=== PATIENT | male | born 1940 | race Caucasian/White ===

== ENCOUNTER 2022-06-10 07:08 | Inpatient (IN) | payer OTHER ==
[2022-06-10] MEDS ORDERED: Aspirin Chewable 81 MG TAB ONE (07:23)
[2022-06-10] MEDS ORDERED: Nitroglycerin 0.4 MG TAB 1 EACH ONE (07:24)
[2022-06-10] MEDS ORDERED: Nitroglycerin 2% Ointment 1 INCH/1 GM Packet ONE (07:24)
[2022-06-10 07:38] LABS: #Basophils 0.1 10x3/uL (0.0-0.2); #Eosinphils 0.1 10x3/uL (0.0-0.5); #Monocytes 0.8 10x3/uL (0.0-1.1); #Neutrophils 3.7 10x3/uL (1.5-8.4); %Basophils 0.7 % (0.0-2.0); %Eosinophils 1.8 % (0.0-6.0); %Lymphocytes 30.2 % (18.0-47.0); %Monocytes 11.3 % (0.0-10.0); %Neutrophils 55.6 % (40.0-75.0); Hemoglobin 14.6 g/dL (13.5-17.5); Mean Corpuscular HGB CONC 32.3 g/dL (32.0-36.0); Mean Corpuscular Hemoglobin 29.5 pg (27.0-33.0); Mean Corpuscular Volume 91.3 fl (81.2-95.1); Mean Platelet Volume 9.7 fl (7.4-10.4); Platelet Count 250 10x3/uL (150-450); RBC Distribution Width 13.3 % (11.5-14.5); Red Blood Cell (RBC) Count 4.95 10x6/uL (4.32-5.72); White Blood Cell (WBC) Count 6.7 10x3/uL (3.5-10.5)
[2022-06-10 07:57] LABS: ALT (SGPT) 14 U/L (8-55); AST (SGOT) 20 U/L (5-34); Albumin 4.2 g/dL (3.4-4.8); Alkaline Phosphatase 88 U/L (40-110); Anion Gap 17 mmol/L (10-20); BUN (Urea Nitrogen) 14 mg/dL (8.4-25.7); Bilirubin, Total 0.8 mg/dL (0.2-1.2); CK (CPK) 34 U/L (30-200); Calc. Creatinine Clearance 0 mL/min (70-130); Calcium 9.1 mg/dL (7.8-10.44); Carbon Dioxide 21 mmol/L (23-31); Chloride 105 mmol/L (98-107); Estimated GFR 67; Glucose 138 mg/dL (83-110); Lipase 32 U/L (8-78); Potassium 4.3 mmol/L (3.5-5.1); Protein, Total 7.2 g/dL (5.8-8.1); Sodium 139 mmol/L (136-145)
[2022-06-10] MEDS ORDERED: Ondansetron ODT 4 MG TAB PO PRN (10:22)
[2022-06-10] MEDS ORDERED: Ondansetron PF 4 MG/2 ML Vial IVP PRN (10:22)
[2022-06-10] MEDS ORDERED: Acetaminophen 325 MG TAB PO PRN (10:22)
[2022-06-10] MEDS ORDERED: Nitroglycerin 0.4 MG TAB (25 Tab Bottle) SL PRN (10:25)
[2022-06-10 10:27] LABS: CKMB 1.2 ng/mL (0-6.6)
[2022-06-10] MEDS ORDERED: Communication Order-Pharmacy FS SCH (10:30)
[2022-06-10] MEDS ORDERED: Electrolyte Replacement Protocol 1 EACH FS SCH (10:45)
[2022-06-10 11:45] VITALS: BMI 26.4
[2022-06-10 14:40] LABS: CKMB 1.4 ng/mL (0-6.6)
[2022-06-10] MEDS: Carbidopa/Levodopa 25-100 mg Tablet PO SCH (16:05)
[2022-06-10] MEDS: Carvedilol 6.25 MG TAB PO SCH (17:05)
[2022-06-10] MEDS ORDERED: Atorvastatin Calcium 20 MG TAB PO SCH (21:00)
[2022-06-10] MEDS ORDERED: ALPRAZolam 0.25 MG TAB PO SCH (22:30)
[2022-06-11 01:26] LABS: SARS-CoV-2 NAA Rapid Test Not Detected (NotDetected)
[2022-06-11] MEDS: Carbidopa/Levodopa 25-100 mg Tablet PO SCH ×2 (03:58→10:43)
[2022-06-11 05:22] LABS: #Basophils 0.1 10x3/uL (0.0-0.2); #Eosinphils 0.1 10x3/uL (0.0-0.5); #Monocytes 0.8 10x3/uL (0.0-1.1); #Neutrophils 3.2 10x3/uL (1.5-8.4); %Basophils 0.9 % (0.0-2.0); %Eosinophils 2.2 % (0.0-6.0); %Lymphocytes 27.4 % (18.0-47.0); %Monocytes 14.1 % (0.0-10.0); %Neutrophils 55.1 % (40.0-75.0); Hemoglobin 13.2 g/dL (13.5-17.5); Mean Corpuscular HGB CONC 32.7 g/dL (32.0-36.0); Mean Corpuscular Hemoglobin 29.4 pg (27.0-33.0); Mean Platelet Volume 9.8 fl (7.4-10.4); Platelet Count 223 10x3/uL (150-450); RBC Distribution Width 13.3 % (11.5-14.5); Red Blood Cell (RBC) Count 4.49 10x6/uL (4.32-5.72); White Blood Cell (WBC) Count 5.9 10x3/uL (3.5-10.5)
[2022-06-11 05:37] LABS: Anion Gap 11 mmol/L (10-20); BUN (Urea Nitrogen) 13 mg/dL (8.4-25.7); Calc. Creatinine Clearance 71 mL/min (70-130); Calcium 8.7 mg/dL (7.8-10.44); Carbon Dioxide 20 mmol/L (23-31); Cardiac Risk 2.6 (Less than 4.5); Chloride 110 mmol/L (98-107); Cholesterol 124 mg/dl (< 200 Desired); Estimated GFR 87; Glucose 100 mg/dL (83-110); HDL Cholesterol 48 mg/dL (>60 Neg Risk); LDL Cholesterol, Calculated 56 mg/dL; Sodium 137 mmol/L (136-145); Triglycerides 100 mg/dL (Less than 150)
[2022-06-11] MEDS ORDERED: Sodium Chloride 0.9% 1,000 ML IV SCH (06:00)
[2022-06-11] MEDS: Carvedilol 6.25 MG TAB PO SCH (06:03)
[2022-06-11] MEDS ORDERED: Nitroglycerin 50 MG/250 ML BOT 250 ML ONE (07:36)
[2022-06-11] MEDS ORDERED: Lidocaine 1% (PF) 30 ML VIAL ONE (07:36)
[2022-06-11] MEDS ORDERED: Heparin 10,000 UNITS/ 10 ML VIAL ONE (07:37)
[2022-06-11] MEDS ORDERED: Bivalirudin 250 MG VIAL ONE ×2 (07:38→09:20)
[2022-06-11] MEDS ORDERED: Verapamil 5 MG/2 ML VIAL ONE (07:38)
[2022-06-11] MEDS ORDERED: Magnesium 2 GM/50 ML(in water) 2 GM in Premix Bag 1 BAG IVPB SCH (08:00)
[2022-06-11] MEDS ORDERED: Midazolam HCl 2 mg/2 ml Vial ONE (08:28)
[2022-06-11] MEDS ORDERED: Fentanyl 100 MCG/2 ML VIAL ONE (08:28)
[2022-06-11] MEDS ORDERED: Atropine Sulfate 0.4 mg/1 ml Vial ONE (08:41)
[2022-06-11] MEDS ORDERED: Lisinopril 2.5 MG TAB PO SCH (09:00)
[2022-06-11] MEDS ORDERED: Gabapentin 100 MG CAP PO SCH ×2 (09:00)
[2022-06-11] MEDS ORDERED: Aspirin 325 MG TAB ONE (09:01)
[2022-06-11] MEDS ORDERED: Aspirin Chewable 81 MG TAB ONE (09:01)
[2022-06-11] MEDS ORDERED: TICAGRELOR 90 MG TABLET ONE (09:01)
[2022-06-11] MEDS ORDERED: Iopamidol 300 61% 100 ML VIAL FS ONE (10:29)
[2022-06-11 13:12] LABS: Hemoglobin A1c 5.1 % (4.0-6.0)
[2022-06-11 16:45] VITALS: BP 129/53; TEMP 97.8
[2022-06-11] MEDS ORDERED: TICAGRELOR 90 MG TABLET PO SCH (21:00)
[2022-06-12] MEDS ORDERED: Aspirin 81 mg Enteric Coated Tablet PO SCH (09:00)
== END 2022-06-11 16:15 | disposition home or self-care (01) | DRG 250 ==
LOC: CSHERS 07:08 → CSHTELE 10:52
PROVIDERS: ADMIT Hospitalist; ATTEND Hospitalist
PROC: 02703ZZ Dilation of Coronary Artery, One Artery, Percutaneous Approach (ICD-10-PCS; principal; 2022-06-11)
PROC: 4A023N7 Measurement of Cardiac Sampling and Pressure, Left Heart, Percutaneous Approach (ICD-10-PCS; 2022-06-11)
PROC: B2111ZZ Fluoroscopy of Multiple Coronary Arteries using Low Osmolar Contrast (ICD-10-PCS; 2022-06-11)
PROC: B2151ZZ Fluoroscopy of Left Heart using Low Osmolar Contrast (ICD-10-PCS; 2022-06-11)
PROC: B241ZZ3 Ultrasonography of Multiple Coronary Arteries, Intravascular (ICD-10-PCS; 2022-06-11)
DX: T82.855A Stenosis of coronary artery stent, initial encounter (principal); I21.4 Non-ST elevation (NSTEMI) myocardial infarction; I25.110 Atherosclerotic heart disease of native coronary artery with unstable angina pectoris; Z20.822 Contact with and (suspected) exposure to COVID-19; I10 Essential (primary) hypertension; E78.5 Hyperlipidemia, unspecified; G20 Parkinson's disease; K21.9 Gastro-esophageal reflux disease without esophagitis; G62.9 Polyneuropathy, unspecified; E03.9 Hypothyroidism, unspecified; I35.0 Nonrheumatic aortic (valve) stenosis; Y83.8 Other surgical procedures as the cause of abnormal reaction of the patient, or of later complication, without mention of misadventure at the time of the procedure; Z95.5 Presence of coronary angioplasty implant and graft; Z79.82 Long term (current) use of aspirin; Z79.899 Other long term (current) drug therapy; Z82.49 Family history of ischemic heart disease and other diseases of the circulatory system; I25.2 Old myocardial infarction
CPT/HCPCS: 36415; 71045; 80048; 80053; 80061; 82550; 82553; 83036; 83690; 83735; 83880; 84443; 84484; 85025; 92920; 92978; 92979; 93005; 93010; 93458; 94760; 96372; 99152; 99153; C1725; C1753; C1769; C1887; C1894; J0461; J0583; J1644; J1650; J2001; J2250; J3010; J7050; Q9967; U0002

== ENCOUNTER 2022-10-26 17:03 | Inpatient (IN) | payer OTHER ==
[2022-10-26 17:39] LABS: Hemoglobin 14.4 g/dL (13.5-17.5); Mean Corpuscular HGB CONC 31.6 g/dL (32.0-36.0); Mean Corpuscular Hemoglobin 30.5 pg (27.0-33.0); Mean Corpuscular Volume 96.4 fl (81.2-95.1); Mean Platelet Volume 9.8 fl (7.4-10.4); Platelet Count 207 10x3/uL (150-450); Red Blood Cell (RBC) Count 4.72 10x6/uL (4.32-5.72); White Blood Cell (WBC) Count 6.4 10x3/uL (3.5-10.5)
[2022-10-26 17:50] LABS: ALT (SGPT) 20 U/L (8-55); AST (SGOT) 22 U/L (5-34); Alkaline Phosphatase 75 U/L (40-110); Anion Gap 15 mmol/L (10-20); BUN (Urea Nitrogen) 14 mg/dL (8.4-25.7); Bilirubin, Total 0.4 mg/dL (0.2-1.2); Calc. Creatinine Clearance 0 mL/min (70-130); Calcium 8.8 mg/dL (7.8-10.44); Carbon Dioxide 23 mmol/L (23-31); Chloride 103 mmol/L (98-107); Estimated GFR 85; Glucose 102 mg/dL (83-110); Lipase 25 U/L (8-78); Potassium 4.3 mmol/L (3.5-5.1); Sodium 137 mmol/L (136-145)
[2022-10-26 18:13] LABS: CKMB 1.4 ng/mL (0-6.6); MDiff Complete? YES
[2022-10-26 18:15] LABS: Lymphocytes 22 % (21-51); Monocytes 14 % (0-10); Neutrophil 63 % (42-75); Reactive Lymphocytes 1 % (0-10)
[2022-10-26 18:17] LABS: Platelet Adequacy Comment Appears Adequate; RBC Morph Comment Within Normal Limits
[2022-10-26] MEDS ORDERED: Ondansetron PF 4 MG/2 ML Vial ONE (18:19)
[2022-10-26] MEDS ORDERED: Aspirin Chewable 81 MG TAB ONE (18:19)
[2022-10-26] MEDS ORDERED: Famotidine 20 MG TAB ONE (18:20)
[2022-10-26] MEDS ORDERED: Senokot S 8.6-50 MG TAB PO PRN (20:09)
[2022-10-26] MEDS ORDERED: Ondansetron PF 4 MG/2 ML Vial IVP PRN (20:09)
[2022-10-26] MEDS ORDERED: Guaifenesin DM 100-10/5 ML UDCUP PO PRN (20:09)
[2022-10-26] MEDS ORDERED: Nitroglycerin 0.4 MG TAB (25 Tab Bottle) SL PRN (20:10)
[2022-10-26 22:31] VITALS: BMI 30.7
[2022-10-26] MEDS ORDERED: Gabapentin 300 MG CAP PO SCH (22:45)
[2022-10-26] MEDS ORDERED: Atorvastatin Calcium 20 MG TAB PO SCH (22:45)
[2022-10-26] MEDS ORDERED: TICAGRELOR 90 MG TABLET PO SCH (22:45)
[2022-10-26] MEDS: Acetaminophen 325 MG TAB PO PRN (23:02)
[2022-10-26 23:54] LABS: CKMB 1.4 ng/mL (0-6.6)
[2022-10-27] MEDS ORDERED: Levothyroxine Sodium 125 MCG TAB PO SCH (06:00)
[2022-10-27 07:02] LABS: CKMB 1.5 ng/mL (0-6.6)
[2022-10-27] MEDS: Escitalopram Oxalate 10 mg Tablet PO SCH (09:11)
[2022-10-27] MEDS: TICAGRELOR 90 MG TABLET PO SCH ×2 (09:11→20:43)
[2022-10-27] MEDS: Aspirin 81 mg Enteric Coated Tablet PO SCH (09:11)
[2022-10-27 12:30] LABS: Bilirubin Neg (Negative); Blood, Urine Negative (Negative); Clarity Clear (Clear); Glucose, Urine (Dipstick) Normal (Negative); Ketone, Urine Negative (Negative); Leukocyte Negative (Negative); Nitrite Negative (Negative); Protein, Urine (Dipstick) Negative (Neg-Trace)
[2022-10-27 12:32] LABS: Bacteria/HPF None Seen HPF (None Seen); RBC/HPF None Seen HPF (0-3); Squamous Epithelial None Seen HPF (0-3); WBC/HPF None Seen HPF (0-3)
[2022-10-27] MEDS: Calcium Carbonate 500 MG ChewTAB PO PRN ×2 (15:41→19:34)
[2022-10-27] MEDS: Acetaminophen 325 MG TAB PO PRN (19:34)
[2022-10-27] MEDS ORDERED: traZODone HCl 50 MG TAB PO SCH (20:30)
[2022-10-27] MEDS: Metoprolol Tartrate 25 MG TAB PO SCH (20:43)
[2022-10-27] MEDS: Gabapentin 300 MG CAP PO SCH (20:44)
[2022-10-27] MEDS: Atorvastatin Calcium 20 MG TAB PO SCH (20:45)
[2022-10-27] MEDS ORDERED: Gabapentin 300 MG CAP PO SCH (22:30)
[2022-10-27] MEDS ORDERED: Pramipexole Di-HCl 0.25 MG TAB PO SCH (22:30)
[2022-10-28 04:57] LABS: #Eosinphils 0.2 10x3/uL (0.0-0.5); #Monocytes 0.8 10x3/uL (0.0-1.1); #Neutrophils 3.1 10x3/uL (1.5-8.4); %Basophils 0.7 % (0.0-2.0); %Eosinophils 2.8 % (0.0-6.0); %Lymphocytes 27.5 % (18.0-47.0); %Monocytes 14.7 % (0.0-10.0); %Neutrophils 53.8 % (40.0-75.0); Hemoglobin 13.6 g/dL (13.5-17.5); Mean Corpuscular HGB CONC 33.3 g/dL (32.0-36.0); Mean Corpuscular Hemoglobin 30.5 pg (27.0-33.0); Mean Corpuscular Volume 91.5 fl (81.2-95.1); Mean Platelet Volume 9.6 fl (7.4-10.4); Platelet Count 194 10x3/uL (150-450); RBC Distribution Width 14.2 % (11.5-14.5); Red Blood Cell (RBC) Count 4.46 10x6/uL (4.32-5.72); White Blood Cell (WBC) Count 5.7 10x3/uL (3.5-10.5)
[2022-10-28 05:05] LABS: Anion Gap 14 mmol/L (10-20); BUN (Urea Nitrogen) 22 mg/dL (8.4-25.7); Calc. Creatinine Clearance 78 mL/min (70-130); Calcium 8.9 mg/dL (7.8-10.44); Carbon Dioxide 22 mmol/L (23-31); Chloride 108 mmol/L (98-107); Estimated GFR 86; Glucose 97 mg/dL (83-110); Sodium 140 mmol/L (136-145)
[2022-10-28] MEDS: Levothyroxine Sodium 112 MCG TAB PO SCH (05:21)
[2022-10-28] MEDS: Metoprolol Tartrate 25 MG TAB PO SCH ×2 (09:17→21:00)
[2022-10-28] MEDS: Aspirin 81 mg Enteric Coated Tablet PO SCH (09:17)
[2022-10-28] MEDS: Escitalopram Oxalate 10 mg Tablet PO SCH (09:17)
[2022-10-28] MEDS: TICAGRELOR 90 MG TABLET PO SCH ×2 (09:51→21:00)
[2022-10-28] MEDS: Acetaminophen 325 MG TAB PO PRN ×2 (16:12→21:01)
[2022-10-28] MEDS ORDERED: Communication Order-Pharmacy FS SCH ×2 (19:45→20:00)
[2022-10-28] MEDS: Atorvastatin Calcium 20 MG TAB PO SCH (21:00)
[2022-10-28] MEDS: Gabapentin 300 MG CAP PO SCH (21:00)
[2022-10-28] MEDS ORDERED: traZODone HCl 50 MG TAB PO SCH (21:15)
[2022-10-28] MEDS ORDERED: Gabapentin 300 MG CAP PO SCH (21:15)
[2022-10-29] MEDS: TICAGRELOR 90 MG TABLET PO SCH (05:53)
[2022-10-29] MEDS: Aspirin 81 mg Enteric Coated Tablet PO SCH (05:53)
[2022-10-29] MEDS: Escitalopram Oxalate 10 mg Tablet PO SCH (05:53)
[2022-10-29] MEDS: Levothyroxine Sodium 112 MCG TAB PO SCH (05:53)
[2022-10-29 05:59] LABS: #Eosinphils 0.2 10x3/uL (0.0-0.5); #Monocytes 0.7 10x3/uL (0.0-1.1); #Neutrophils 2.9 10x3/uL (1.5-8.4); %Basophils 0.5 % (0.0-2.0); %Eosinophils 2.9 % (0.0-6.0); %Lymphocytes 29.8 % (18.0-47.0); %Monocytes 13.1 % (0.0-10.0); %Neutrophils 53.2 % (40.0-75.0); Mean Corpuscular HGB CONC 33.8 g/dL (32.0-36.0); Mean Corpuscular Hemoglobin 30.6 pg (27.0-33.0); Mean Corpuscular Volume 90.4 fl (81.2-95.1); Mean Platelet Volume 9.6 fl (7.4-10.4); Platelet Count 208 10x3/uL (150-450); RBC Distribution Width 14.2 % (11.5-14.5); Red Blood Cell (RBC) Count 4.58 10x6/uL (4.32-5.72); White Blood Cell (WBC) Count 5.5 10x3/uL (3.5-10.5)
[2022-10-29 06:06] LABS: Anion Gap 13 mmol/L (10-20); BUN (Urea Nitrogen) 22 mg/dL (8.4-25.7); Calc. Creatinine Clearance 71 mL/min (70-130); Carbon Dioxide 23 mmol/L (23-31); Chloride 108 mmol/L (98-107); Estimated GFR 77; Glucose 97 mg/dL (83-110); Potassium 3.9 mmol/L (3.5-5.1); Sodium 140 mmol/L (136-145)
[2022-10-29] MEDS: Metoprolol Tartrate 25 MG TAB PO SCH (08:45)
[2022-10-29] MEDS ORDERED: Iopamidol 300 61% 100 ML VIAL FS ONE (10:21)
[2022-10-29] MEDS ORDERED: Nitroglycerin 50 MG/250 ML BOT 250 ML ONE (12:28)
[2022-10-29] MEDS ORDERED: Lidocaine 1% MPF 2 ML VIAL ONE (12:28)
[2022-10-29] MEDS ORDERED: Lidocaine 1% (PF) 30 ML VIAL ONE (12:28)
[2022-10-29] MEDS ORDERED: Heparin 10,000 UNITS/ 10 ML VIAL ONE (12:29)
[2022-10-29] MEDS ORDERED: Verapamil 5 MG/2 ML VIAL ONE (12:30)
[2022-10-29] MEDS ORDERED: Adenosine 6 MG/2 ML VIAL ONE (12:30)
[2022-10-29] MEDS ORDERED: fentaNYL 50 mcg/mL 1 mL Vial ONE (13:36)
[2022-10-29] MEDS ORDERED: Midazolam HCl 2 mg/2 ml Vial ONE (13:36)
[2022-10-29 14:59] VITALS: TEMP 98
[2022-10-29 18:04] VITALS: BP 134/61
== END 2022-10-29 18:40 | disposition home or self-care (01) | DRG 247 ==
LOC: CSHERS 17:03 → CSHTELE 22:28 → INTOOBSV 22:28 → OBSVTOIN 10-29 10:08
PROVIDERS: ADMIT Student in an Organized Health Care Education/Training Program; ATTEND Hospitalist
PROC: 027034Z Dilation of Coronary Artery, One Artery with Drug-eluting Intraluminal Device, Percutaneous Approach (ICD-10-PCS; principal; 2022-10-29)
PROC: 4A023N7 Measurement of Cardiac Sampling and Pressure, Left Heart, Percutaneous Approach (ICD-10-PCS; 2022-10-29)
PROC: B2111ZZ Fluoroscopy of Multiple Coronary Arteries using Low Osmolar Contrast (ICD-10-PCS; 2022-10-29)
PROC: B2151ZZ Fluoroscopy of Left Heart using Low Osmolar Contrast (ICD-10-PCS; 2022-10-29)
DX: I24.9 Acute ischemic heart disease, unspecified (principal); T82.855A Stenosis of coronary artery stent, initial encounter; I5A Non-ischemic myocardial injury (non-traumatic); I25.110 Atherosclerotic heart disease of native coronary artery with unstable angina pectoris; I35.0 Nonrheumatic aortic (valve) stenosis; I10 Essential (primary) hypertension; E78.5 Hyperlipidemia, unspecified; G62.9 Polyneuropathy, unspecified; K21.9 Gastro-esophageal reflux disease without esophagitis; G20 Parkinson's disease; E03.9 Hypothyroidism, unspecified; R77.8 Other specified abnormalities of plasma proteins; F41.9 Anxiety disorder, unspecified; Y83.8 Other surgical procedures as the cause of abnormal reaction of the patient, or of later complication, without mention of misadventure at the time of the procedure; Z95.5 Presence of coronary angioplasty implant and graft; Z79.82 Long term (current) use of aspirin; Z79.899 Other long term (current) drug therapy; Z98.890 Other specified postprocedural states; Z82.49 Family history of ischemic heart disease and other diseases of the circulatory system; Z85.828 Personal history of other malignant neoplasm of skin
CPT/HCPCS: 36415; 70450; 71045; 80048; 80053; 81001; 82553; 83690; 84439; 84443; 84484; 85025; 85347; 92928; 93005; 93010; 93306; 93458; 96372; 96374; 96376; 99152; 99153; C1769; C1874; C1887; C1894; C9600; G0378; J0153; J1644; J1650; J2001; J2250; J2405; J3010; Q9967